=== PATIENT | male | born 1965 | race Caucasian/White ===

== ENCOUNTER 2017-01-28 08:28 | Day surgery (SDC) | payer BC ==
[~2017-01-28 08:28] MED LIST: CHONDR SU A NA/HYALUR INTRAOC KIT (SURGICARE) ONE; EPINEPHRINE INJ/PF 1 MG/1 ML AMPULE ONE; KETOROLAC TROMETHAMINE 0.45% 4 DROP/0.4 ML DROPERETTE OD PRN; LIDOCAINE 1% INJ-PF (10 MG/ML) 30 ML SDV ONE
[2017-01-28] MEDS: TETRACAINE HCL 0.5% OPH SOLN 2 ML OD PRN ×3 (08:46→09:13)
[2017-01-28] MEDS: CYCLOPENTOLATE 0.2%/PHENYLEPHRINE 1% OPH SOLN 2 ML OD PRN ×3 (08:46→09:06)
[2017-01-28] MEDS: TROPICAMIDE 1% OPH SOLN 3 ML OD PRN ×3 (08:46→09:06)
[2017-01-28] MEDS: BESIFLOXACIN HCL 0.6% OPH SUSP 5 ML BOTTLE OD PRN ×3 (08:47→09:39)
[2017-01-28] MEDS ORDERED: FENTANYL CITRATE INJ/PF 100 MCG/2 ML AMPUL ONE (08:53)
[2017-01-28] MEDS ORDERED: MIDAZOLAM 2 MG/2 ML INJ ONE ×2 (08:53→09:16)
--- NOTE | 2017-02-03 10:18 | [facility] OPERATIVE REPORT E ---
[facility] Operative Report NAME: LIVIA FLOREZ AGE: 51Y DATE OF SURGERY: 01/28/2017 ROOM: PREOPERATIVE DIAGNOSIS: Cataract, right eye. POSTOPERATIVE DIAGNOSIS: Cataract, right eye. OPERATION: Cataract extraction with intraocular lens implant of the right eye. SURGEON: RADHA YOU M.D. ANESTHESIA: Topical. PROCEDURE: After obtaining appropriate consent, the patient's right eye was prepped and draped in sterile fashion as well as the surgeon in a sterile manner and cataract surgery was started. First a paracentesis blade was used to make a small side-port incision. Viscoelastic was used to inflate the anterior chamber. Next a 2.4 mm incision was made with the paracentesis blade. A continuous capsulorrhexis incision was made using a cystotome and Utrata forceps. Following this hydrodissection was carried out to make the lens fully loose and mobile and it was rotated 90 degrees. Following this, a hrmwfu-sva-hnnfytq technique was used to phacoemulsify the lens with a CDE of 8.72. The remaining cortex was removed with irrigation/aspiration. Provisc was instilled into the capsular bag to inflate the bag. A SN60WF, 20.5 diopter lens was placed. The remaining viscoelastic material was removed with irrigation/aspiration. Following this, a 10-0 nylon suture was used to close the incision and it was found to be watertight. Vigamox was instilled in the eye and a protective shield was placed over the eye. The patient returned to the postoperative recovery in stable condition. DICTATING PHYSICIAN: RADHA YOU M.D. [id number] PHY#: [id number] ID: [id number] JOB#: [id number] ACCT: [id number] cc:RADHA YOU M.D. >
== END 2017-01-28 10:19 | disposition home or self-care (01) ==
LOC: SC 08:28
PROVIDERS: ATTEND Internal Medicine
PROC: 08RJ3JZ Replacement of Right Lens with Synthetic Substitute, Percutaneous Approach (ICD-10-PCS; principal; 2017-01-28 09:30)
DX: H25.813 Combined forms of age-related cataract, bilateral (principal); H01.002 Unspecified blepharitis right lower eyelid; H01.005 Unspecified blepharitis left lower eyelid; Z79.899 Other long term (current) drug therapy
CPT/HCPCS: 66984; V2632; J2250; J3490 ×2; J0171; J3010; 142

== ENCOUNTER 2017-02-25 09:07 | Day surgery (SDC) | payer BC ==
[~2017-02-25 09:07] MED LIST changes: -KETOROLAC TROMETHAMINE 0.45% 4 DROP/0.4 ML DROPERETTE OD PRN; +KETOROLAC TROMETHAMINE 0.45% 4 DROP/0.4 ML DROPERETTE OS PRN
[2017-02-25] MEDS: CYCLOPENTOLATE 0.2%/PHENYLEPHRINE 1% OPH SOLN 2 ML OS PRN ×3 (09:33→09:53)
[2017-02-25] MEDS: BESIFLOXACIN HCL 0.6% OPH SUSP 5 ML BOTTLE OS PRN ×3 (09:33→10:28)
[2017-02-25] MEDS: TROPICAMIDE 1% OPH SOLN 3 ML OS PRN ×3 (09:33→09:53)
[2017-02-25] MEDS: TETRACAINE HCL 0.5% OPH SOLN 2 ML OS PRN ×3 (09:34→10:06)
[2017-02-25] MEDS ORDERED: MIDAZOLAM 2 MG/2 ML INJ ONE (09:57)
[2017-02-25] MEDS ORDERED: FENTANYL CITRATE INJ/PF 100 MCG/2 ML AMPUL ONE (09:57)
--- NOTE | 2017-02-25 19:34 | [facility] OPERATIVE REPORT E ---
[facility] Operative Report NAME: LIVIA FLOREZ AGE: 51Y DATE OF SURGERY: 02/25/2017 ROOM: PREOPERATIVE DIAGNOSIS: CATARACT, LEFT EYE. POSTOPERATIVE DIAGNOSIS: CATARACT, LEFT EYE. OPERATION: Cataract extraction with intraocular lens implant of the left eye. SURGEON: RADHA YOU M.D. ANESTHESIA: Topical. PROCEDURE: After obtaining appropriate consent, the patient's left eye was prepped and draped in sterile fashion as well as the surgeon in a sterile manner and cataract surgery was started. First a paracentesis blade was used to make a small side-port incision. Viscoelastic was used to inflate the anterior chamber. Next a 2.4 mm incision was made with the paracentesis blade. A continuous capsulorrhexis incision was made using a cystotome and Utrata forceps. Following this hydrodissection was carried out to make the lens fully loose and mobile and it was rotated 90 degrees. Following this, a vulibc-bdp-huqjomy technique was used to phacoemulsify the lens with a CDE of 10.84. The remaining cortex was removed with irrigation/aspiration. Provisc was instilled into the capsular bag to inflate the bag. A SN60WF, 20.5 diopter lens was placed. The remaining viscoelastic material was removed with irrigation/aspiration. Following this, a 10-0 nylon suture was used to close the incision and it was found to be watertight. Vigamox was instilled in the eye and a protective shield was placed over the eye. The patient returned to the postoperative recovery in stable condition. DICTATING PHYSICIAN: RADHA YOU M.D. [id number] PHY#: [id number] ID: [id number] JOB#: [id number] ACCT: [id number] cc:RADHA YOU M.D. >
--- NOTE | 2017-02-25 19:44 | [facility] DISCHARGE SUMMARY E ---
[facility] Discharge Summary NAME: LIVIA FLOREZ AGE: 51Y ADMITTED: 02/25/2017 DISCHARGED: 02/25/2017 FINAL DIAGNOSIS: CATARACT, LEFT EYE. HISTORY/CLINIC COURSE: This is a 51-year-old patient who underwent cataract extraction without complication, woke up in postoperative recovery in stable condition. He underwent surgery because he was having difficulty seeing words on the television. Patient is to be on a regular diet. No bending at the waist, no heavy lifting. Patient should use the Besivance, Ilevro, and Durezol at 3 p.m. and 8 p.m., and sleep with a rigid shield. I will see him for 1 day postoperative tomorrow. DICTATING PHYSICIAN: RADHA YOU M.D. [id number] PHY#: [id number] ID: [id number] JOB#: [id number] ACCT: [id number] cc:RADHA YOU M.D. >
== END 2017-02-25 11:10 | disposition home or self-care (01) ==
LOC: SC 09:07
PROVIDERS: ATTEND Internal Medicine
PROC: 08RK3JZ Replacement of Left Lens with Synthetic Substitute, Percutaneous Approach (ICD-10-PCS; principal; 2017-02-25 10:30)
DX: H25.812 Combined forms of age-related cataract, left eye (principal)
CPT/HCPCS: 66984; V2632; J2250; J3490 ×2; J0171; J3010; 142